=== PATIENT | male | born 1950 | race Caucasian/White ===

== ENCOUNTER → 2017-11-12 | Outpatient (CLI) | payer MEDICARE ==
[~2017-11-12] MED LIST: ASPI-515 PO; LISI-167 PO; METF500T4 PO; NIACIN; ROSU10TA PO
== END | disposition home or self-care (01) ==
LOC: CFH 07:04
PROVIDERS: ATTEND Family Medicine
DX: M43.16 Spondylolisthesis, lumbar region (principal); M51.36 Other intervertebral disc degeneration, lumbar region
CPT/HCPCS: 72148

== ENCOUNTER → 2018-04-28 | Outpatient (CLI) | payer MEDICARE ==
[~2018-04-28] MED LIST changes: +METF500T17 PO; -METF500T4 PO; +MULT-516 PO
[2018-04-28 08:51] LABS: BASOPHILS # (AUTO) 0.07 x10^3/uL (0-0.1); BASOPHILS % (AUTO) 1 % (0-1); EOSINOPHILS # (AUTO) 0.14 x10^3/uL (0-0.4); EOSINOPHILS % (AUTO) 1 % (1-7); LYMPHOCYTES # (AUTO) 1.54 x10^3/uL (1-3.4); LYMPHOCYTES % (AUTO) 16 % (22-44); MD NO; MEAN CORPUSCULAR HEMOGLOBIN 29.1 pg (27.5-34.5); MEAN CORPUSCULAR HGB CONC 32.7 g/dL (33.2-36.2); MEAN CORPUSCULAR VOLUME 89.1 fL (81-97); MEAN PLATELET VOLUME 9.2 fL (7.4-10.4); MONOCYTES # (AUTO) 0.89 x10^3/uL (0.2-0.8); MONOCYTES % (AUTO) 9 % (2-9); NEUTROPHILS # (AUTO) 7.26 x10^3/uL (1.8-6.8); NEUTROPHILS % (AUTO) 73 % (42-75); PLATELET COUNT 236 x10^3/uL (130-400); RED BLOOD COUNT 5.46 x10^6/uL (4.38-5.82); RED CELL DISTRIBUTION WIDTH 14.9 % (9.4-14.8)
[2018-04-28 09:02] LABS: INTERNATIONAL NORMALIZED RATIO 1.02 (0.93-1.1); PROTHROMBIN TIME 10.6 Seconds (9.6-11.5)
[2018-04-28 09:04] LABS: ALANINE AMINOTRANSFERASE 32 U/L (12-78); ALBUMIN 4.1 g/dL (3.4-5.0); ANION GAP 7 mmol/L (5-15); CALCIUM 9.1 mg/dL (8.5-10.1); CHLORIDE 106 mmol/L (98-107); CREATININE 1.34 mg/dL (0.7-1.3)
[2018-04-28 09:06] LABS: ALKALINE PHOSPHATASE 50 U/L (45-117); BILIRUBIN,TOTAL 0.6 mg/dL (0.2-1.0); TOTAL PROTEIN 7.3 g/dL (6.4-8.2)
[2018-04-28 09:14] LABS: MICROSCOPIC NOT IND
[2018-04-28 09:22] LABS: CULTURE INDICATED? NO
== END | disposition home or self-care (01) ==
LOC: STAR 07:58
PROVIDERS: ATTEND Neurological Surgery
DX: Z01.818 Encounter for other preprocedural examination (principal); M51.36 Other intervertebral disc degeneration, lumbar region
CPT/HCPCS: 36415; 71046; 72110; 80053; 81003; 85025; 85610; 85730; 93005

== ENCOUNTER → 2018-05-01 | Outpatient (CLI) | payer MEDICARE | END | disposition home or self-care (01) | LOC: CVU 07:29 | PROVIDERS: ATTEND Internal Medicine Cardiovascular Disease | DX: I65.23 Occlusion and stenosis of bilateral carotid arteries (principal); I25.10 Atherosclerotic heart disease of native coronary artery without angina pectoris | CPT/HCPCS: 93880 ==

== ENCOUNTER 2018-05-14 09:41 | Inpatient (IN) | payer MEDICARE ==
[~2018-05-14] VITALS: Ht 180.3 cm; Wt 83.3 kg
[~2018-05-14 09:41] MED LIST changes: +BACITRACIN 50,000 UNIT ONE; +BUPIVACAINE/PF 0.5% ONE; +EPINEPHRINE 1 MG/ML, 1ML ONE; +THROMBIN 5,000 UNIT VIAL TP ONE
[2018-05-14] MEDS ORDERED: BUPIVACAINE/PF-EPI 0.5% 1:200K ONE ×2 (10:02→16:40)
[2018-05-14] MEDS ORDERED: OXYcodone IR 5MG TABLET PO ONE (10:30)
[2018-05-14] MEDS ORDERED: DIAZEPAM 5 MG TABLET PO ONE (10:30)
[2018-05-14] MEDS ORDERED: ACETAMINOPHEN 500 MG TABLET PO ONE (10:30)
[2018-05-14] MEDS ORDERED: GABAPENTIN 300 MG CAPSULE PO ONE (10:30)
[2018-05-14 10:31] VITALS: BP 169/87
[2018-05-14] MEDS: LACTATED RINGERS 1,000 ML IV SCH ×2 (10:34→21:02)
[2018-05-14] MEDS ORDERED: MIDAZOLAM 1 MG/ML, 2ML ONE (15:50)
[2018-05-14] MEDS ORDERED: FENTANYL PF 250 MCG/5ML ONE (15:54)
[2018-05-14] MEDS ORDERED: MEPERIDINE/PF 25MG/0.5ML IVPush PRN (16:00)
[2018-05-14] MEDS ORDERED: LABETALOL 5MG/ML, 20ML IV PRN (16:00)
[2018-05-14] MEDS ORDERED: OXYcodone 5 MG/5 ML ORAL.SOL UDC PO PRN (16:00)
[2018-05-14] MEDS ORDERED: ONDANSETRON 2MG/ML, 2ML IV PRN ×2 (16:00→20:00)
[2018-05-14] MEDS ORDERED: HYDROmorphone 1 MG/ML, 1ML IV PRN (16:00)
[2018-05-14] MEDS ORDERED: FENTANYL PF 100 MCG/2ML IV PRN (16:00)
[2018-05-14] MEDS ORDERED: PROPOFOL 10 MG/ML, 20ML ONE (16:07)
[2018-05-14] MEDS ORDERED: CEFAZOLIN 1,000 MG ONE (16:07)
[2018-05-14] MEDS ORDERED: ONDANSETRON 2MG/ML, 2ML ONE ×2 (16:07→18:09)
[2018-05-14] MEDS ORDERED: DEXAMETHASONE 4 MG/ML, 5ML ONE (16:07)
[2018-05-14] MEDS ORDERED: ROCURONIUM 10 MG/ML,10ML ONE (16:07)
[2018-05-14] MEDS ORDERED: BUPIVACAINE/PF-EPI 0.5% 1:200K INFIL ONE (16:31)
[2018-05-14] MEDS ORDERED: LABETALOL 5MG/ML, 20ML ONE (18:16)
[2018-05-14] MEDS ORDERED: hydrALAzine 20 MG/ML, 1ML ONE (18:16)
[2018-05-14] MEDS ORDERED: PROMETHAZINE 25 MG/ML, 1ML ONE (18:42)
[2018-05-14] MEDS ORDERED: HYDROmorphone PCA 30 MG/30 ML IV PRN (19:00)
[2018-05-14] MEDS ORDERED: PROMETHAZINE 25 MG/ML, 1ML IV PRN (19:00)
[2018-05-14] MEDS ORDERED: MAGNESIUM HYDROXIDE 8%, 30ML UDC PO PRN (20:00)
[2018-05-14] MEDS ORDERED: morphine SULFATE 10 MG/ML, 1ML IV PRN (20:00)
[2018-05-14] MEDS ORDERED: BISACODYL 10 MG SUPP PR PRN (20:00)
[2018-05-14] MEDS ORDERED: CYCLOBENZAPRINE 10 MG TABLET PO PRN (20:00)
[2018-05-14] MEDS ORDERED: HYDROcodone/APAP 10/325 MG TABLET PO PRN (20:00)
[2018-05-14] MEDS ORDERED: OXYcodone/APAP 5/325MG TABLET PO PRN (20:00)
[2018-05-14] MEDS ORDERED: DIPHENHYDRAMINE 50 MG/ML, 1ML IVPush PRN (20:30)
[2018-05-14] MEDS ORDERED: PHARMACY MAY ADJ FOR RENAL FX MC PRN (20:30)
[2018-05-14] MEDS ORDERED: DIPHENHYDRAMINE 25 MG CAPSULE PO PRN (20:30)
[2018-05-14] MEDS: NS + 20MEQ KCL 1,000 ML IV SCH (21:00)
[2018-05-14] MEDS ORDERED: ATORVASTATIN 40 MG TABLET PO SCH (21:00)
[2018-05-14] MEDS: CEFAZOLIN PMX 1GM/50ML 50 ML IVPB SCH (23:59)
[2018-05-15 02:51] VITALS: BP 130/68
[2018-05-15 04:21] VITALS: BP 101/49
[2018-05-15] MEDS: NS + 20MEQ KCL 1,000 ML IV SCH (06:30)
[2018-05-15 07:53] VITALS: BP 123/63
[2018-05-15] MEDS ORDERED: metFORMIN 500 MG TABLET PO SCH (08:00)
[2018-05-15] MEDS: CEFAZOLIN PMX 1GM/50ML 50 ML IVPB SCH (08:04)
[2018-05-15] MEDS ORDERED: SENNA/DOCUSATE TABLET PO SCH (09:00)
[2018-05-15] MEDS ORDERED: LISINOPRIL 5 MG TABLET PO SCH (09:00)
[2018-05-15 09:43] VITALS: BP 127/66
[2018-05-15 10:00] VITALS: BP 124/66
[2018-05-15 12:49] VITALS: BP 102/56
[2018-05-15] MEDS ORDERED: HYDR-3307 PO (15:01)
[2018-05-15] MEDS ORDERED: TIZA4TAB9 PO (15:02)
== END 2018-05-15 15:20 | disposition home or self-care (01) | DRG 517 ==
LOC: OUT 09:41 → 4NOR 19:30 → OUT 20:00 → 4NOR 20:01 → DCLOUNGE 05-15 15:00
PROVIDERS: ADMIT Neurological Surgery; ATTEND Neurological Surgery
PROC: 01NB0ZZ Release Lumbar Nerve, Open Approach (ICD-10-PCS; principal; 2018-05-14 12:30)
DX: M48.062 Spinal stenosis, lumbar region with neurogenic claudication (principal); M51.36 Other intervertebral disc degeneration, lumbar region; E11.9 Type 2 diabetes mellitus without complications; E78.5 Hyperlipidemia, unspecified; I10 Essential (primary) hypertension; I25.10 Atherosclerotic heart disease of native coronary artery without angina pectoris; Z95.1 Presence of aortocoronary bypass graft; Z82.49 Family history of ischemic heart disease and other diseases of the circulatory system
CPT/HCPCS: 72100; 82962; G0378; J0171; J0690; J1100; J2250; J2405; J2550; J2704; J3010; J3480; J3490; J7120

== ENCOUNTER 2019-05-06 06:24 | Outpatient (CLI) | payer MEDICARE ==
[~2019-05-06 06:24] MED LIST changes: +AMOX1TAB64 PO; +ASPI-496 PO; -BACITRACIN 50,000 UNIT ONE; -BUPIVACAINE/PF 0.5% ONE; -EPINEPHRINE 1 MG/ML, 1ML ONE; +HYDR-36 PO; -ROSU10TA PO; +ROSU10TA2 PO; -THROMBIN 5,000 UNIT VIAL TP ONE; +TIZA4TAB9 PO
== END 2019-05-06 23:59 | disposition home or self-care (01) ==
LOC: CVU 06:24
PROVIDERS: ATTEND Internal Medicine Cardiovascular Disease
DX: I35.8 Other nonrheumatic aortic valve disorders (principal); I65.23 Occlusion and stenosis of bilateral carotid arteries; I71.2 Thoracic aortic aneurysm, without rupture; I10 Essential (primary) hypertension; E78.5 Hyperlipidemia, unspecified; E11.9 Type 2 diabetes mellitus without complications
CPT/HCPCS: 93306; 93880